=== PATIENT | female | born 1930 | race Two or more races ===

== ENCOUNTER 2017-12-02 15:52 | Inpatient (IN) | payer BC, OTHER ==
[~2017-12-02] VITALS: Ht 165.1 cm; Wt 63.0 kg
[2017-12-02] MEDS ORDERED: MORPHINE SULFATE 4 MG/ML SYR/VIAL IV ONE (18:15)
[2017-12-02] MEDS ORDERED: ONDANSETRON HCL 4 MG/2 ML VIAL IV ONE (18:15)
[2017-12-02] MEDS ORDERED: diphenhdrAMINE HCL 50 MG/1 ML VL ONE (18:22)
[2017-12-02 18:28] LABS: Basophils # (auto) 0.1 uL; Basophils % (auto) 0.7 % (0.0-2.0); Eosinophils # (auto) 0.2 uL; Hematocrit 31.3 % (36.0-46.0); Hemoglobin 10.4 g/dL (12.2-16.2); Lymphocytes # (auto) 0.9 uL; Lymphocytes % (auto) 10.6 % (10.0-50.0); Mean Corpuscular Hemoglobin 29.3 pg (28.0-32.0); Mean Corpuscular Hgb Conc. 33.3 g/dL (32.0-36.0); Mean Corpuscular Volume 88.1 fL (80.0-100.0); Monocytes # (auto) 0.6 uL; Monocytes % (auto) 6.7 % (0.0-12.0); Neutrophils # (auto) 6.7 uL; Platelet Count (auto) 146 10^3/uL (140-450); Red Blood Cells 3.55 10^6/uL (4.0-5.20); Red Cell Distribution Width 14.2 % (11.8-14.3); White Blood Cell 8.4 10^3/uL (4.4-10.8)
[2017-12-02] MEDS ORDERED: diphenhdrAMINE HCL 50 MG/1 ML VL IV ONE (18:30)
[2017-12-02 18:44] LABS: INR 1.1 (0.9-1.15); Partial Thromboplastin Time 28.1 sec (22.64-33.71)
[2017-12-02 18:46] LABS: Alanine Aminotransferase 14 U/L (13-56); Albumin 2.9 g/dL (3.4-5.0); Anion Gap 7 (5-15); Aspartate Aminotransferase 13 U/L (15-37); BUN/Creatinine Ratio 11.3; Blood Urea Nitrogen 14 mg/dL (7-18); Calcium 8.6 mg/dL (8.5-10.1); Carbon Dioxide 24 mmol/L (21-32); Chloride 108 mmol/L (98-107); GFR African American 53 mL/min; GFR Non-African American 43 mL/min; Glucose 112 mg/dL (74-106); Potassium 3.8 mmol/L (3.5-5.1); Sodium 139 mmol/L (136-145)
[2017-12-02 19:15] LABS: Alkaline Phosphatase 54 U/L (45-117); Bilirubin, Total 0.5 mg/dL (0.2-1.0); Total Protein 6.2 g/dL (6.4-8.2)
[2017-12-02 19:50] LABS: Urine Bacteria NONE SEEN /hpf (None Seen); Urine Blood 2+ /uL (Negative); Urine Hyaline Cast FEW /lpf (0 - 2); Urine Mucus FEW (None Seen); Urine Specific Gravity 1.016 (1.001-1.035); Urine WBC 6 /hpf (0 - 5)
[2017-12-02] MEDS ORDERED: HYDROmorphone HCL 2 MG/ML VL IV PRN (21:15)
[2017-12-02] MEDS ORDERED: ONDANSETRON HCL 4 MG/2 ML VIAL IV PRN (21:15)
[2017-12-02 22:00] VITALS: BP 93/41
[2017-12-02] MEDS: HYDROcodone-ACET 5/325MG TAB PO PRN (23:04)
[2017-12-02 23:10] VITALS: BP 83/41
[2017-12-02] MEDS ORDERED: CARVEDILOL 12.5 MG TAB PO ONE (23:15)
[2017-12-03] VITALS (11 sets, daily range): BP systolic 80–133; BP diastolic 35–76
[2017-12-03 05:32] LABS: Basophils # (auto) 0.1 uL; Basophils % (auto) 0.7 % (0.0-2.0); Eosinophils # (auto) 0.2 uL; Eosinophils % (auto) 2.6 % (0.0-7.0); Hematocrit 26.1 % (36.0-46.0); Hemoglobin 8.8 g/dL (12.2-16.2); Lymphocytes # (auto) 0.9 uL; Lymphocytes % (auto) 11.5 % (10.0-50.0); Mean Corpuscular Hemoglobin 29.8 pg (28.0-32.0); Mean Corpuscular Hgb Conc. 33.8 g/dL (32.0-36.0); Mean Corpuscular Volume 88.3 fL (80.0-100.0); Monocytes # (auto) 0.7 uL; Neutrophils # (auto) 6.2 uL; Neutrophils % (auto) 76.2 % (37.0-80.0); Platelet Count (auto) 118 10^3/uL (140-450); Red Blood Cells 2.95 10^6/uL (4.0-5.20); Red Cell Distribution Width 14.1 % (11.8-14.3); White Blood Cell 8.1 10^3/uL (4.4-10.8)
[2017-12-03 05:48] LABS: Calcium 8.5 mg/dL (8.5-10.1); Potassium 4.3 mmol/L (3.5-5.1)
[2017-12-03 05:54] LABS: BUN/Creatinine Ratio 12.7
[2017-12-03] MEDS: HYDROcodone-ACET 5/325MG TAB PO PRN (06:18)
[2017-12-03] MEDS: LEVOTHYROXINE SODIUM 88 MCG TAB PO SCH (06:31)
[2017-12-03] MEDS ORDERED: CARVEDILOL 12.5 MG TAB PO SCH (10:00)
[2017-12-03] MEDS ORDERED: LOSARTAN POTASSIUM 50 MG TAB PO SCH (10:00)
[2017-12-03 10:56] LABS: Basophils # (auto) 0 uL; Eosinophils # (auto) 0.2 uL; Hemoglobin 7.9 g/dL (12.2-16.2); Lymphocytes # (auto) 0.8 uL; Monocytes # (auto) 0.7 uL; Neutrophils # (auto) 4.9 uL
[2017-12-03 10:58] LABS: Basophils % (auto) 0.5 % (0.0-2.0); Eosinophils % (auto) 3.6 % (0.0-7.0); Hematocrit 23.5 % (36.0-46.0); Lymphocytes % (auto) 12.6 % (10.0-50.0); Mean Corpuscular Hemoglobin 29.4 pg (28.0-32.0); Mean Corpuscular Hgb Conc. 33.6 g/dL (32.0-36.0); Mean Corpuscular Volume 87.6 fL (80.0-100.0); Monocytes % (auto) 10.5 % (0.0-12.0); Neutrophils % (auto) 72.8 % (37.0-80.0); Platelet Count (auto) 105 10^3/uL (140-450); Red Blood Cells 2.69 10^6/uL (4.0-5.20); Red Cell Distribution Width 14.3 % (11.8-14.3); White Blood Cell 6.7 10^3/uL (4.4-10.8)
[2017-12-03] MEDS: SODIUM CHLORIDE 0.9% 1,000 ML IV SCH (17:14)
[2017-12-03] MEDS: ACETAMINOPHEN 500 MG TAB PO PRN (21:01)
[2017-12-04] VITALS (14 sets, daily range): BP systolic 107–148; BP diastolic 47–89
[2017-12-04] MEDS: SODIUM CHLORIDE 0.9% 1,000 ML IV SCH ×2 (00:45→10:28)
[2017-12-04] MEDS: HYDROcodone-ACET 5/325MG TAB PO PRN (01:38)
[2017-12-04] MEDS ORDERED: methylPREDNISolone SOD SUCC 125 MG/2 ML VL ONE (06:37)
[2017-12-04] MEDS ORDERED: diphenhdrAMINE HCL 50 MG/1 ML VL ONE (06:38)
[2017-12-04] MEDS ORDERED: diphenhdrAMINE HCL 50 MG/1 ML VL IV ONE (06:45)
[2017-12-04] MEDS ORDERED: methylPREDNISolone SOD SUCC 125 MG/2 ML VL IV ONE ×2 (06:45→12:45)
[2017-12-04] MEDS: LEVOTHYROXINE SODIUM 88 MCG TAB PO SCH (07:04)
[2017-12-04] MEDS ORDERED: FURO20TA PO (10:46)
[2017-12-04] MEDS ORDERED: POTA20TA53 PO (10:46)
[2017-12-04] MEDS ORDERED: FUROSEMIDE 40 MG/4 ML VIAL IV ONE (12:45)
[2017-12-04 12:46] LABS: Basophils # (auto) 0 uL; Basophils % (auto) 0.6 % (0.0-2.0); Eosinophils # (auto) 0.1 uL; Eosinophils % (auto) 1.5 % (0.0-7.0); Hemoglobin 10.5 g/dL (12.2-16.2); Lymphocytes # (auto) 0.4 uL; Lymphocytes % (auto) 5.5 % (10.0-50.0); Mean Corpuscular Hemoglobin 29.9 pg (28.0-32.0); Mean Corpuscular Hgb Conc. 33.7 g/dL (32.0-36.0); Mean Corpuscular Volume 88.6 fL (80.0-100.0); Monocytes # (auto) 0.3 uL; Monocytes % (auto) 4.1 % (0.0-12.0); Neutrophils # (auto) 7.1 uL; Neutrophils % (auto) 88.3 % (37.0-80.0); Nucleated Red Blood Cells % 0.1 %; Platelet Count (auto) 93 10^3/uL (140-450); Red Cell Distribution Width 14.1 % (11.8-14.3)
[2017-12-04] MEDS: ALBUTEROL SULF 2.5 MG/0.5ML(0.5%) NEB SOLN NEB SCH (19:03)
[2017-12-04] MEDS: ACETAMINOPHEN 500 MG TAB PO PRN (20:54)
[2017-12-04] MEDS ORDERED: TEMAZEPAM 15 MG CAP PO ONE (23:45)
[2017-12-05] MEDS: ALBUTEROL SULF 2.5 MG/0.5ML(0.5%) NEB SOLN NEB SCH ×3 (01:44→13:37)
[2017-12-05] MEDS: LEVOTHYROXINE SODIUM 88 MCG TAB PO SCH ×2 (06:51→08:16)
[2017-12-05 08:59] LABS: Basophils # (auto) 0 uL; Basophils % (auto) 0.2 % (0.0-2.0); Eosinophils # (auto) 0 uL; Eosinophils % (auto) 0.1 % (0.0-7.0); Hematocrit 31.6 % (36.0-46.0); Hemoglobin 10.4 g/dL (12.2-16.2); Lymphocytes # (auto) 0.5 uL; Lymphocytes % (auto) 4.8 % (10.0-50.0); Mean Corpuscular Hemoglobin 29.1 pg (28.0-32.0); Mean Corpuscular Hgb Conc. 33.1 g/dL (32.0-36.0); Mean Corpuscular Volume 88.1 fL (80.0-100.0); Monocytes # (auto) 0.7 uL; Monocytes % (auto) 5.8 % (0.0-12.0); Neutrophils # (auto) 10.1 uL; Neutrophils % (auto) 89.1 % (37.0-80.0); Platelet Count (auto) 105 10^3/uL (140-450); Red Blood Cells 3.58 10^6/uL (4.0-5.20); Red Cell Distribution Width 14.1 % (11.8-14.3); White Blood Cell 11.4 10^3/uL (4.4-10.8)
[2017-12-05 09:00] VITALS: BP 136/66
[2017-12-05 09:19] LABS: BUN/Creatinine Ratio 27.2; Calcium 9.9 mg/dL (8.5-10.1); Potassium 3.4 mmol/L (3.5-5.1)
[2017-12-05] MEDS ORDERED: LACTULOSE 20Gm/30ML SOLN PO ONE (12:00)
[2017-12-05] MEDS ORDERED: FUROSEMIDE 40 MG/4 ML VIAL IV ONE (12:00)
[2017-12-05 15:14] VITALS: BP 138/77
== END 2017-12-05 16:15 | disposition home or self-care (01) | DRG 562 ==
LOC: ER 15:52 → EDBD 15:52 → UNDOADMIN 15:53 → OVERFLOW 15:53 → WEST WING 23:08
PROVIDERS: ADMIT Nurse Practitioner Family; ATTEND Family Medicine
PROC: 30233N1 Transfusion of Nonautologous Red Blood Cells into Peripheral Vein, Percutaneous Approach (ICD-10-PCS; principal; 2017-12-03)
DX: S82.141A Displaced bicondylar fracture of right tibia, initial encounter for closed fracture (principal); I50.43 Acute on chronic combined systolic (congestive) and diastolic (congestive) heart failure; I95.9 Hypotension, unspecified; I11.0 Hypertensive heart disease with heart failure; D50.0 Iron deficiency anemia secondary to blood loss (chronic); M25.00 Hemarthrosis, unspecified joint; Z95.1 Presence of aortocoronary bypass graft; I25.10 Atherosclerotic heart disease of native coronary artery without angina pectoris; E03.9 Hypothyroidism, unspecified; E78.5 Hyperlipidemia, unspecified; F32.9 Major depressive disorder, single episode, unspecified; M11.20 Other chondrocalcinosis, unspecified site; S80.02XA Contusion of left knee, initial encounter; T80.89XA Other complications following infusion, transfusion and therapeutic injection, initial encounter; Y84.8 Other medical procedures as the cause of abnormal reaction of the patient, or of later complication, without mention of misadventure at the time of the procedure; V89.2XXA Person injured in unspecified motor-vehicle accident, traffic, initial encounter; I25.2 Old myocardial infarction; Y93.89 Activity, other specified; Y92.410 Unspecified street and highway as the place of occurrence of the external cause; Z79.899 Other long term (current) drug therapy
CPT/HCPCS: 36415; 51702; 70450; 71045; 71250; 73120; 73560; 73562; 73700; 74176; 80048; 80053; 81001; 84443; 84484; 85025; 85610; 85730; 86850; 86900; 86901; 86920; 94640; 96374; 96375; J2405

== ENCOUNTER 2019-01-22 13:10 | Emergency (ER) | payer BC ==
[~2019-01-22] VITALS: Ht 165.1 cm; Wt 62.1 kg
[~2019-01-22 13:10] MED LIST: FURO20TA PO; POTA20TA53 PO
[2019-01-22 16:15] VITALS: BP 128/56
[2019-01-22] MEDS: HYDROcodone-ACET 5/325MG TAB PO ONE (16:26)
== END 2019-01-22 16:47 | disposition home or self-care (01) ==
LOC: ER 13:10
DX: S52.591A Other fractures of lower end of right radius, initial encounter for closed fracture (principal); I11.0 Hypertensive heart disease with heart failure; I50.9 Heart failure, unspecified; Z95.1 Presence of aortocoronary bypass graft; Z88.6 Allergy status to analgesic agent; Y93.23 Activity, snow (alpine) (downhill) skiing, snowboarding, sledding, tobogganing and snow tubing; Y93.89 Activity, other specified; Y92.89 Other specified places as the place of occurrence of the external cause; Y99.8 Other external cause status
CPT/HCPCS: 29125; 73110; 73130